=== PATIENT | male | born 1980 | race Caucasian/White ===

== ENCOUNTER 2016-11-02 20:50 | Emergency (ER) | payer OTHER ==
[2016-11-02 20:56] VITALS: BP 128/79; PULSE 68; RESP 16; TEMP 98.1; O2SAT 98
--- NOTE | 2016-11-02 21:45 | EDPHY ---
H & P Stated Complaint: R wrist injury with soccer ball HPI/ROS: Chief complaint: Right wrist injury History of present illness: This is a 36-year-old male who presents to the emergency department for a right wrist injury. Patient was playing soccer earlier today when the soccer ball struck his wrist. Since then he has had pain and swelling in the wrist. It hurts to move the wrist. He denies associated signs or symptoms including no open wounds, no paresthesias and no abnormal coolness in the right upper extremity. No other trauma reported. - Personal History Current Tetanus/Diphtheria Vaccine: Yes Current Tetanus Diphtheria and Acellular Pertussis (TDAP): Yes Tetanus Vaccine Date: 2014 - Medical/Surgical History Hx Asthma: No Hx Chronic Respiratory Disease: No Hx Diabetes: No Hx Cardiac Disease: No Hx Renal Disease: No Hx Cirrhosis: No Hx Alcoholism: No Hx HIV/AIDS: No Hx Splenectomy or Spleen Trauma: No Other PMH: NONE - Social History Smoking Status: Never smoked - Physical Exam Exam: General: Alert, nontoxic Skin: Contusion to the right wrist, no open wounds Musculoskeletal: Tenderness to the right wrist. He has not want a range it secondary to pain. The hand, proximal forearm, elbow and upper arm are nontender. He is moving the digits of the hand, elbow and the shoulder well. Vascular: Radial pulses 2+. Capillary refill brisk in the right hand. Neurologic: Sensation intact throughout the right upper extremity. Constitutional: Initial Vital Signs Temperature (C) 36.7 C 11/02/16 20:54 Heart Rate 68 11/02/16 20:54 Respiratory Rate 16 11/02/16 20:54 Blood Pressure 128/79 H 11/02/16 20:54 O2 Sat (%) 98 11/02/16 20:54 O2 Delivery Mode Room Air Allergies/Adverse Reactions: No Known Allergies Allergy (Verified 11/02/16 20:56) Home Medications: Medication Instructions Recorded Hydrocodone/APAP 5/325 [[place] 1 tab PO Q4 #10 tab 11/02/16 5/325 (*)] Medical Decision Making - Diagnostics Imaging: X-ray series of the right wrist reveals a distal radius and ulnar fracture Procedures: Procedure: Splint placement. A sugar-tong splint was applied. After application of the splint I returned and re-examined the patient. The splint was adequately immobilizing the joint and distal to the splint the patient's circulation and sensation was intact. Patient is placed in a sling ED Course/Re-evaluation: Patient seen under the supervision of my secondary supervising physician Dr. Wai Kinney. Patient presents to the emergency department for a right wrist injury. The right upper extremity is neurovascularly intact. X-ray confirms a fracture. Patient is splinted. He is discharged home and home care is discussed. He is referred to Orthopedics for recheck. Return precautions are given. Patient voiced understanding and agreement with plan. Differential Diagnosis: Included but not limited to contusion, sprain or strain, fracture Departure - Departure Disposition: Home, Routine, Self-Care Clinical Impression: Wrist fracture Qualifiers: Encounter type: initial encounter Fracture type: closed Laterality: right Qualified Code(s): S62.101A - Fracture of unspecified carpal bone, right wrist, initial encounter for closed fracture Condition: Good Instructions: Wrist Fracture in Adults (ED) Additional Instructions: Please call and arrange a follow-up appointment with orthopedics for continued evaluation and care In addition You have been prescribed [[place]] for pain. [[place]] contains Tylenol , do not take extra Tylenol/acetaminophen/Apap with it. It is sedating. If symptoms worsen or new symptoms develop return to the emergency room for recheck Referrals: NONE *PRIMARY CARE P,. [Primary Care Provider] - As per Instructions Baldomero Gant MD [Medical Doctor] - As per Instructions Prescriptions: Hydrocodone/APAP 5/325 [[place] 5/325 (*)] 1 tab PO Q4 #10 tab
== END 2016-11-02 22:12 | disposition home or self-care (01) ==
DX: S52.514A Nondisplaced fracture of right radial styloid process, initial encounter for closed fracture (principal); S52.614A Nondisplaced fracture of right ulna styloid process, initial encounter for closed fracture; W21.02XA Struck by soccer ball, initial encounter; Y92.322 Soccer field as the place of occurrence of the external cause; Y99.8 Other external cause status; Y93.66 Activity, soccer